=== PATIENT | female | born 1990 | race Caucasian/White ===

== ENCOUNTER → 2016-09-02 08:21 | Day surgery (SDC) | payer SELFPAY ==
[~2016-09-02 08:21] MED LIST: Buffered Lidocaine 1% SYR 3ML* 3 ML/SYR SYRINGE ONE; Bupivacaine 0.25% SDV* 30 ML ONE; Famotidine IV* 10 MG/ML 2 ML (20 mg) ONE; HYDROcodone/ACETAMIN 5-325 MG* 1 TAB ONE; Ketorolac INJ* 30 MG/ML 1 ML VIAL ONE; Lidocaine 2% PF * 5 ML VIAL ONE; Midazolam* 1 MG/ML 2 ML VIAL (2 MG) ONE; Ondansetron INJ* 2 MG/ML VIAL ONE; PROCHLORPERAZINE INJ 5 MG/ML 2 ML VIAL IV PRN; Propofol* 10 MG/ML 20 ML BTL IV PUSH ONE; fentaNYL* 50 MCG/ML 2 ML VIAL (100 MCG VIAL) IV PRN; fentaNYL* 50 MCG/ML 2 ML VIAL (100 MCG VIAL) ONE; oxyCODONE TAB* 5 MG TAB PO PRN
[2016-09-02 12:31] VITALS: BP 129/87
--- NOTE | 2016-09-07 00:28 | OP ---
DATE OF OPERATION: 09/02/16 - [facility] DATE OF : 89 SURGEON: Piyush Peck MD MULTIPLE RESAW OPERATOR: KATARZYNA Chang ANESTHESIOLOGIST: Dr. Daley. ANESTHESIA: General. PRE-OP DIAGNOSES: 1. Chronic left index finger flexor tenosynovitis, status post 2 debridements and with recurrent drainage from the proximal aspect of the wound over the A1 jose area. 2. Previously ruptured left index finger FDS tendon. 3. Extensive flexor tendon adhesions of residual left index finger FDP tendon with no active flexion at the PIP joint or DIP joint. 4. High-grade partial thickness rupture of the left index finger, FDP tendon. POST-OP DIAGNOSES: 1. Chronic left index finger flexor tenosynovitis, status post 2 debridements and with recurrent drainage from the proximal aspect of the wound over the A1 jose area. 2. Previously ruptured left index finger FDS tendon. 3. Extensive flexor tendon adhesions of residual left index finger FDP tendon with no active flexion at the PIP joint or DIP joint. 4. High-grade partial thickness rupture of the left index finger, FDP tendon. OPERATIVE PROCEDURES: 1. Irrigation and debridement of the skin and subcutaneous tissue, left arm and index finger wounds and chronic infections from chronic flexor tenosynovitis. 2. Irrigation and debridement of left index finger metacarpophalangeal joint utilizing prior arthrotomy and defect in the volar plate. 3. Debridement of ruptured left index finger flexor digitorum superficialis tendon in the palm. 4. Debridement of left index finger flexor digitorum superficialis ruptured tendon in the finger. 5. Debridement of adhesed and nonfunctional left index finger flexor digitorum profundus tendon with the remaining flexor tendon sheath in the palm 6. Debridement of adhesed and nonfunctional left index finger flexor digitorum profundus tendon with the remaining flexor tendon sheath in the finger INDICATIONS: Charles is a 26-year-old female who a month and a half ago, on 07/21, had a cat bite to the left index finger. She ultimately was treated initially with antibiotics and after a day or two later was still infected. She was admitted for IV antibiotics a couple of days after that and discharged. Ultimately, she ended up undergoing her first I and D on 08/07/16 and then subsequently underwent another irrigation and debridement about 2 weeks ago, on 08/20/16. At that time, the FDS tendon was noted to be ruptured. Everything was washed out and wounds were closed very loose and she was sent for followup with me for dedicated hand surgical consultation. I saw her the first time about a week ago and I noted that she had no active flexion of the finger except at the MP joint through the intrinsics. I counseled her that she really needed to get the finger moving even just passively as her options would be very limited if she develops a stiff finger, but at least, if she has passive motion, we can plan for subsequent reconstructive surgery in the future. We had also discussed the possibility of an index finger ray amputation, but she wants to see if any of the infection cleared and restore some motion to the finger. She has done a very nice job working on passive motion. A week later, she followed with my office and she was said that she was having increasing pain in the area over the A1 jose. She noticed that this started after the wounds definitively closed. She reports that the area is getting more swollen and the last day or two, she has actually started to have a little bit of drainage from the proximal aspect of the incision. We talked about risks and benefits and I told her that it is quite possible that what the remaining nonfunctional tendon that she has is devascularized and certainly has a nidus of infection at this point and is preventing her from healing the infection. We talked about risks and benefits and she elected to proceed with surgery. ESTIMATED BLOOD LOSS: 5 mL. COMPLICATIONS: None. FINDINGS: Completely adherent and stuck down FDP tendon under the A2 jose. There was also significant scar tissue at the site of the FDS rupture, which was just at the proximal aspect of the A2 jose. There was a defect in the volar plate on the ulnar aspect over the MP joint as well. Ultimately, sustained a quite a bunch of scar tissue and absolutely adhesed and very fragile and nonviable-appearing FDP tendon remnant. DESCRIPTION OF PROCEDURE: Charles was seen in the preoperative holding area and the correct site and side were marked. The patient then brought back to the operating room. Anesthesia was induced and the arm was prepped and draped in the usual fashion. A formal time-out was performed. I then went ahead and opened up the prior Nathan-type incision over the volar aspect of the left index finger and down to the palm just proximal to the A1 jose. This was then extended proximally and a little bit distally as well to expose the entire flexion tendon sheath. Distally, the tendon looked healthy, perfused and viable. At about the level of the distal aspect of the A3 jose it started to become diseased and rather poor looking. There were complete and massive adhesions of the FDP and ruptured FDS tendon under the A2 jose and absolutely no pull- through of the tendons. The FDS was ruptured just near the area of the A1 jose area. The remainder of the FDP tendon and the area of the A1 jose area looked very poor, stringy, nonviable, and certainly not functional. I went ahead and cleaned up some skin, subcutaneous tissue, and scar tissue and identified the digital nerves proximally in a more healthy tissue. These were then dissected out distally and preserved throughout the entirety of the case. Feeling the nonviability of the tendons and that they were a reason for the persistent infection despite antibiotics, and certainly the fact that they were completely encased in scar tissue and not going to be functional, I went ahead and made the decision to debride all of the FDP and FDS tendons. The debridement was carried back proximally for both the FDP and FDS remnants all the way to the level of the mid palm, where the tendons started to look completely healthy and disease free. They were then incised sharply at this point and allowed to retract up into carpal tunnel. The debridement was then carried out distally into the finger removing the distal FDS stumps, the diseased FDP tendon, A2 jose, A3 jose, and most of the A4 jose as well until I encountered a healthy, viable distal FDP tendon. All the scar tissue and nonviable tissue was removed. Everything was looking now looking healthy. At this point, I took my bulb syringe and put it in through the defect in the volar plate in the metacarpophalangeal joint and then irrigated the metacarpophalangeal joint as I took it through a complete range of motion. With the tendons fully debrided and the wound bed looking very clean, I went ahead and copiously irrigated the wound. The wound was then closed very loosely with eight or nine 4-0 nylon sutures in the corners of the flaps and a couple of them in between the corners of the flaps. The wound was then bandaged with Xeroform, 4x4s, sterile Webril, and an Roland wrap. She was then awoken back up and taken to the recovery room in stable condition. [id number]/[facility] #: [id number] IVON
== END | disposition home or self-care (01) ==
LOC: OREAST 08:21
PROVIDERS: ATTEND Orthopaedic Surgery Hand Surgery
DX: M65.142 Other infective (teno)synovitis, left hand (principal); M66.342 Spontaneous rupture of flexor tendons, left hand; F17.210 Nicotine dependence, cigarettes, uncomplicated; L03.012 Cellulitis of left finger; W55.01XA Bitten by cat, initial encounter
CPT/HCPCS: 87070; 87073; 87205; 88304; J1885; J2250; J2405; J2704; J3010

== ENCOUNTER → 2016-11-18 09:33 | Day surgery (SDC) | payer OTHER ==
[~2016-11-18 09:33] MED LIST changes: -Buffered Lidocaine 1% SYR 3ML* 3 ML/SYR SYRINGE ONE; +Buffered Lidocaine 1% SYRIN* 3 ML/SYR SYRINGE INTRADERM ONE; +Dexamethasone IV* 4 MG/ML 1 ML (4 MG) IV SLOW PU ONE; +Dexamethasone IV* 4 MG/ML 1 ML (4 MG) ONE; +DiMENhydriNATE IV* 50 MG/ML VIAL IV PUSH PRN; +DiMENhydriNATE IV* 50 MG/ML VIAL ONE; +Famotidine IV* 10 MG/ML 2 ML (20 mg) IV ONE; +HYDROmorphone* 1 MG/ML 1 ML SYR IV PRN; +HYDROmorphone* 1 MG/ML 1 ML SYR ONE; -Lidocaine 2% PF * 5 ML VIAL ONE; +Lidocaine 2% PF* 5 ML VIAL ONE; -Midazolam* 1 MG/ML 2 ML VIAL (2 MG) ONE; +Midazolam* 1 MG/ML 5 ML VIAL (5 MG) ONE; +Ondansetron INJ* 2 MG/ML VIAL IV PRN; -PROCHLORPERAZINE INJ 5 MG/ML 2 ML VIAL IV PRN; +Scopolamine 1.5 mg* PATCH ONE; +Scopolamine 1.5 mg* PATCH TRANSDERM PRN; +Scopolomine PATCH Remove* 1 NOTE MISC PATCH OFF ONE; +ceFAZolin 2 GM PREMIX(*) 2 GM/50 ML BAG IVPB ONE; +fentaNYL* 50 MCG/ML 5 ML VIAL (250 MCG VIAL) ONE; -oxyCODONE TAB* 5 MG TAB PO PRN; +oxyCODONE/Acetamin 5/325 MG* TAB PO PRN
[2016-11-18 19:12] VITALS: BP 128/70
--- NOTE | 2016-11-20 21:51 | OP ---
DATE OF OPERATION: 11/18/16 - [facility] DATE OF : [birth year] SURGEON: Piyush Peck MD SOFTWARE ENGINEER WEB SERVICES: KATARZYNA Tony ANESTHESIOLOGIST: Dr. Bryan. ANESTHESIA: General. PRE-OP DIAGNOSIS: Status post flexor tendon and jose debridement, status post spontaneous rupture of the flexor tendons and extensive scarring due to chronic flexor tenosynovitis. POST-OP DIAGNOSIS: Status post flexor tendon and jose debridement, status post spontaneous rupture of the flexor tendons and extensive scarring due to chronic flexor tenosynovitis. OPERATIVE PROCEDURE: 1. Irrigation and debridement of extensive scar tissue along the tract of the flexor tendon sheath. 2. Stage 1 flexor tendon reconstruction with silicone marsha tendon spacer placement. 3. A2 jose reconstruction using ipsilateral palmaris longus tendon autograft. 4. A4 jose reconstruction using split flexor carpi radialis tendon ipsilateral autograft INDICATIONS: Charles about 3 months ago had her flexor tendons debrided due to unfortunate chronic flexor tenosynovitis. She had ruptured tendons spontaneously. She has failed multiple debridements to clear the infection. After the debridement of the tendons and of the flexor tendon sheath, she has not had any more issues whatsoever with the infection, the pain went away immediately. She has worked hard to regain almost completely full passive motion. She has been off antibiotics for quite sometime and has had absolutely no signs of infection. We have talked about risks and benefits including the risk of infection of the spacer marsha, which would necessitate marsha removal and she would have to wait before any surgery to regain all of her motion back again. We had also talked about the extensive scarring in the finger and the possibility of damage to surrounding structures. FINDINGS: As expected extensive scarring. ESTIMATED BLOOD LOSS: 10 mL. COMPLICATIONS: There was a small partial laceration to the ulnar digital nerve to the index finger during excision of the extensive scar tissue. This was at the level around the A1 jose. Again, it was about a 20% partial laceration and was repaired with one 9-0 nylon suture. DESCRIPTION OF PROCEDURE: Charles was seen in the preoperative holding area. The correct site and side of the procedure were identified. We came back to the operating room where anesthesia was induced, and the arm was prepped and draped in the usual fashion. A formal time-out was performed. I began by reopening her prior Toribio-type incision. This was extended a little bit proximally down into the palm to aid in identifying the neurovascular structures. Dense scar tissue was encountered. I did find the digital nerves both radially and ulnarly. The scar tissue was then excised sharply. I did take care to preserve the volar plate of the PIP and MP joints. The distal stump of the FDP tendon was identified and protected. When I got proximal about the level of the A1 jose, I did have a partial laceration of the digital nerve there. This was noted and I waited until the case was otherwise completed to repair the partial laceration. Once I had the tendon sheath completely debride of all the extensive scar tissue, I went ahead and measured the size of my tendon. It looked like it would take a 4 mm spacer marsha. This was opened and brought in. At this point, I went ahead and made a Nathan-type incision just ulnar to the palmaris longus tendon in the level of the distal forearm. Dissection was carried down through the fascia. Skin flaps were sewn back. The fascia was opened in the FDS and the median nerve was retracted radially to expose the FDP tendons. The ulnar neurovascular bundle was retracted ulnarly. At this point, I then took the Sentilla tendon passer and passed it along the tract of the flexor tendon starting distally and then back up into the carpal tunnel and out just superficial to the FDP tendons. I then took my tendon spacer marsha. I had sutured some 4-0 Prolene to the end of it. I grafted the 4-0 Prolene with my tendon spacer and then delivered the tendon spacer down into the index finger. The tendon spacer was then sewed to the distal FDP tendon stump with some 3-0 nylon suture via few a [id number] sutures. It was trimmed to the appropriate length and left free at the distal forearm level. I then turned my attention to the jose reconstruction. Through the wound, at the distal forearm, I identified the palmaris longus. I really stayed distally and then used a tendon stripper to harvest a full length of the palmaris longus tendon. It was freed up with the muscle that came with it using the 15 blade. I then sutured this with some 4-0 Prolene to its distal end. I then use a right angle retractor to pass this between the extensor tendons in the bone and delivered my palmaris longus tendon 3 times around the proximal phalanx. This was then sutured to itself with some 3-0 Ethibond suture. She had a very sharp palmaris longus tendon and so 75% of the tendon was used up doing this. At this point, I went over to the contralateral arm and made a small transverse 1.5 cm incision. I looked forward but could not identify a palmaris longus tendon, so I went ahead and irrigated that wound and closed up the wound. I came back to the operative arm and made a transverse laceration with the distal FCR tendon. 6 to 7 cm proximal to that, I made a second transverse incision and identified the FCR tendon. I made a third transverse incision proximal to that and again I identified the FCR tendon at the musculotendinous junction. The tendon was freed up along the course of its sheath with the tenotomy scissors. I then split the tendon distally with a 15 blade and passed a 26- gauge wire through the split in the tendon. This was sequentially delivered into the 2 proximal wounds to complete the split of the tendon. The tendon was released distally and proximally. I then use this split FCR tendon graft and in similar fashion as I did on the proximal phalanx, I passed it around the distal phalanx 3 times to reconstruct the A4 jose. At this time, I went superficial to the dorsal extensor tendon. The tendon graft was sutured to itself to complete the reconstruction of the A4 jose. At this point, I checked to make sure the tendon spacer glided. It did glide very smoothly. I felt like it was a little long proximally and so I trimmed off another couple of centimeters. I then flexed the finger multiple times and the tendon was gliding absolutely smoothly. It was not kinking whatsoever. I was very satisfied with this. I went ahead and irrigated the wound very copiously. At this point, I took a 9-0 nylon suture and put one simple suture through the epineurium to repair the partial laceration to the digital nerve that I had caused. I then irrigated the wound out again copiously. I then closed the skin in the distal forearm and all the forearm wounds with 4-0 nylon suture. The finger and palm wounds were closed with 5-0 nylon interrupted sutures. The operative wounds were infiltrated with 0.25% Marcaine. The wounds were dressed with Xeroform, 4x4s, sterile Webril, and Roland wrap. The finger was wrapped loosely with a Coban. The tourniquet was deflated. It had been inflated prior to making skin incision. She was then woken up and taken to the recovery room in stable condition. [id number]/[facility] #: [id number] IVON
== END | disposition home or self-care (01) ==
LOC: OREAST 09:33
PROVIDERS: ATTEND Orthopaedic Surgery Hand Surgery
DX: M66.342 Spontaneous rupture of flexor tendons, left hand (principal); M65.142 Other infective (teno)synovitis, left hand; W55.01XS Bitten by cat, sequela; Z72.0 Tobacco use
CPT/HCPCS: A9270-GY; C1713; J0690; J1100; J1170; J1240; J1885; J2250; J2405; J2704; J3010

== ENCOUNTER 2017-05-30 11:02 | Day surgery (SDC) | payer OTHER ==
[~2017-05-30 11:02] MED LIST changes: +Buffered Lidocaine 0.9% SYRIN* 5 ML/SYR SYRINGE INTRADERM ONE; -Buffered Lidocaine 1% SYRIN* 3 ML/SYR SYRINGE INTRADERM ONE; -Bupivacaine 0.25% SDV* 30 ML ONE; -Dexamethasone IV* 4 MG/ML 1 ML (4 MG) ONE; -DiMENhydriNATE IV* 50 MG/ML VIAL IV PUSH PRN; -DiMENhydriNATE IV* 50 MG/ML VIAL ONE; -Famotidine IV* 10 MG/ML 2 ML (20 mg) ONE; -HYDROcodone/ACETAMIN 5-325 MG* 1 TAB ONE; -HYDROmorphone* 1 MG/ML 1 ML SYR IV PRN; -HYDROmorphone* 1 MG/ML 1 ML SYR ONE; -Ketorolac INJ* 30 MG/ML 1 ML VIAL ONE; -Lidocaine 2% PF* 5 ML VIAL ONE; -Midazolam* 1 MG/ML 5 ML VIAL (5 MG) ONE; -Ondansetron INJ* 2 MG/ML VIAL IV PRN; -Ondansetron INJ* 2 MG/ML VIAL ONE; -Propofol* 10 MG/ML 20 ML BTL IV PUSH ONE; -Scopolamine 1.5 mg* PATCH ONE; -Scopolamine 1.5 mg* PATCH TRANSDERM PRN; -Scopolomine PATCH Remove* 1 NOTE MISC PATCH OFF ONE; -ceFAZolin 2 GM PREMIX(*) 2 GM/50 ML BAG IVPB ONE; -fentaNYL* 50 MCG/ML 2 ML VIAL (100 MCG VIAL) IV PRN; -fentaNYL* 50 MCG/ML 2 ML VIAL (100 MCG VIAL) ONE; -fentaNYL* 50 MCG/ML 5 ML VIAL (250 MCG VIAL) ONE; -oxyCODONE/Acetamin 5/325 MG* TAB PO PRN
[2017-05-30] MEDS ORDERED: Famotidine IV* 10 MG/ML 2 ML (20 mg) ONE (11:05)
[2017-05-30] MEDS ORDERED: Dexamethasone IV* 4 MG/ML 1 ML (4 MG) ONE (11:05)
[2017-05-30] MEDS ORDERED: ceFAZolin 2 GM PREMIX (*) 50 ML IVPB ONE (11:07)
[2017-05-30] MEDS ORDERED: Lidocaine 2% PF * 5 ML VIAL ONE (12:04)
[2017-05-30] MEDS ORDERED: Propofol* 10 MG/ML 20 ML BTL IV PUSH ONE (12:04)
[2017-05-30] MEDS ORDERED: Midazolam* 1 MG/ML 2 ML VIAL (2 MG) ONE (12:05)
[2017-05-30] MEDS ORDERED: fentaNYL* 50 MCG/ML 2 ML VIAL (100 MCG VIAL) ONE ×4 (12:05→15:22)
[2017-05-30] MEDS ORDERED: Bupivacaine 0.25% SDV* 30 ML ONE (12:08)
[2017-05-30] MEDS ORDERED: oxyCODONE/Acetamin 5/325 MG* TAB PO PRN (12:46)
[2017-05-30] MEDS ORDERED: HYDROcodone/ACETAMIN 5-325 MG* 1 TAB PO PRN (12:46)
[2017-05-30] MEDS ORDERED: PROCHLORPERAZINE INJ 5 MG/ML 2 ML VIAL IV PRN (12:46)
[2017-05-30] MEDS ORDERED: Ondansetron INJ* 2 MG/ML VIAL ONE (13:38)
[2017-05-30] MEDS ORDERED: oxyCODONE/Acetamin 5/325 MG* TAB ONE (15:22)
[2017-05-30] MEDS: fentaNYL* 50 MCG/ML 2 ML VIAL (100 MCG VIAL) IV PRN ×2 (15:25→15:47)
[2017-05-30 16:03] VITALS: BP 116/69
--- NOTE | 2017-05-31 05:03 | OP ---
DATE OF OPERATION: 05/30/17 - [facility] DATE OF : [birth year] SURGEON: Piyush Peck MD LOCATION MAN: KATARZYNA Wing. An care team assistant was needed for the entirety of the procedure to aid in positioning of the arm and retraction. ANESTHESIOLOGIST: Dr. Mary Pandey. ANESTHESIA: General. PRE-OP DIAGNOSIS: Status post left index finger stage 1 flexor tendon reconstruction in late October after flexor tendon rupture and debridement secondary to chronic pyogenic flexor tenosynovitis. POST-OP DIAGNOSIS: Status post left index finger, stage 1 flexor tendon reconstruction in late October after flexor tendon rupture and debridement secondary to chronic pyogenic flexor tenosynovitis. OPERATIVE PROCEDURE: Left index finger stage 2 flexor tendon reconstruction with autogenous plantaris tendon autograft. INDICATIONS: Charles had the aforementioned tendon ruptures. She had a debridement and then subsequently she had only reconstruction and Rafa marsha placement by me in late October, I believe. She has been loosening up and has been going slow, but she has reached a point where she has plateaued. She is not really having any pain, finger has 90% normal motion, but is not making any gains in therapy. I had talked to her about giving this more time versus proceeding. She is obviously very anxious to proceed. We waited a couple of more months and I think we are finally at a point where we can proceed with stage 2 of surgery. We certainly understand there is a risk of tendon rupture and tendon adhesions necessitating further surgery. ESTIMATED BLOOD LOSS: 5 mL. COMPLICATIONS: None. FINDINGS: As expected. DESCRIPTION OF PROCEDURE: Charles was seen in the preoperative holding area. The correct site and side of the procedure were identified. We came back to the operating room where the arm was prepped and draped in the usual fashion as was the left leg. A time-out was performed. I then exsanguinated the arm with the Esmarch and inflated the tourniquet to 250 mmHg. I reopened her distal incision and full thickness flap was raised off of the tendon sheath area. The coaptation between the Rafa marsha and the distal pin and stump was identified where the green Ethibond sutures were located. This was released and the distal end of the Rafa marsha was brought up into the wound. I then reopened the distal forearm incision, the fascia was opened, the tenotomy scissors were used to release some of the scar tissue around the flexor tendon. The Rafa marsha was encountered and brought up into the proximal wound. I then placed the moist gauze over both of those wounds and turned my attention to the leg where the leg was exsanguinated with the Esmarch and the tourniquet inflated to 300 mmHg. I then made a 3 cm longitudinal incision just off the medial aspect of the Achilles tendon. Dissection was carried down through the subcutaneous tissue to the fascia. This was opened and the plantaris tendon was identified. This was released distally and brought up into the wound where a tendon stripper was passed around it. I then used the tendon stripper to harvest various long healthy-looking plantar tendon. It was a bit thin and small, but otherwise a very nice tendon. This was wrapped in some moist gauze and set aside for later use. I went ahead and irrigated out the leg wounds, 3- 0 Vicryl to close subcutaneous tissue and the skin was closed with 3-0 Monocryl suture and Steri- Strips. It was dressed with 4x4's, sterile Webril, and an Roland bandage. I then turned my attention back to the arm where I went ahead and sewed by tendon wrap to the proximal end of the Rafa marsha with 4-0 Prolene suture. I then atraumatically pulled the marsha out of the distal wound until I delivered the tendon graft into the distal wound. I then brushed up the edge of my tendon graft. I split the distal stump of the FDP longitudinally and then used Williams needles to pass a 3-0 Prolene suture that I had placed with sutures into the plantaris tendon graft end. The Williams needles were brought out transosseously through the sterile Matrix. I then placed a small bit of gauze and a bit of the Prolene suture wrapper that I had shaped with a button and tied off the 3-0 Prolene in a standard pullout suture fashion to oppose the tendon grafts to the distal phalanx. I then took my two split ends of the FDP _ ____ and wrapped them around my tendon graft. This piece was secured with multiple 4-0 Ethibonds [id number]-de-[id number] sutures. Once I had placed secured my distal tendon stump to the distal end of my graft and had my pull-out suture placed, I went ahead and irrigated out that wound and then turned my attention to the proximal wound where the FDP to the middle finger was identified. I used a tendon prince to into the middle finger FDP tendon. I tensioned the weave so that there was a nice cascade with the index finger, just slightly more flexed with the wrist in neutral to slight flexion. When I had it appropriately tensioned, I went ahead and secured the weave with multiple figure -of- eight, 3-0 Ethibond sutures. Once I had the weave fully tensioned and sewn together, I went ahead and took the wrist through multiple rounds of passive range of motion. Everything was moving very nicely, the cascade was very nice. I, therefore, went ahead and irrigated out all the wounds. The skin was closed with 4- 0 nylon suture both distally and proximally. A 0.25% Marcaine was used to perform a digital block to that index finger and also around the forearm wound. Skin was closed with 4-0 nylon. The wound was dressed with Xeroform, 4x4's, sterile Webril, and dorsal blocking splint was placed to the wrist in slight flexion and MP joints in full flexion. Tourniquet was deflated on the arm. Tourniquet in the leg had been deflated after dressings were on the leg. Everything pinked up nicely. Total tourniquet time for the arm was right around 120 minutes. She was then awoken up and taken to recovery room in stable condition. [id number]/[facility] #: [id number] IVON
== END 2017-05-30 16:25 | disposition home or self-care (01) ==
LOC: OREAST 11:02
PROVIDERS: ATTEND Orthopaedic Surgery Hand Surgery
DX: M66.342 Spontaneous rupture of flexor tendons, left hand (principal); W55.01XS Bitten by cat, sequela; F17.210 Nicotine dependence, cigarettes, uncomplicated
CPT/HCPCS: 81025; A9270-GY; J0690; J1100; J2250; J2405; J2704; J3010

== ENCOUNTER 2017-11-14 13:04 | Day surgery (SDC) | payer BC, OTHER ==
[~2017-11-14 13:04] MED LIST changes: -Dexamethasone IV* 4 MG/ML 1 ML (4 MG) IV SLOW PU ONE; -Famotidine IV* 10 MG/ML 2 ML (20 mg) IV ONE
[2017-11-14] MEDS ORDERED: Bupivacaine 0.25% SDV* 30 ML ONE (14:53)
[2017-11-14] MEDS ORDERED: ceFAZolin 2 GM PREMIX (*) 2 GM/50 ML BAG IVPB ONE (15:07)
[2017-11-14] MEDS ORDERED: Lidocaine 2% PF * 5 ML VIAL ONE (15:30)
[2017-11-14] MEDS ORDERED: Propofol* 10 MG/ML 20 ML BTL IV PUSH ONE (15:30)
[2017-11-14] MEDS ORDERED: fentaNYL* 50 MCG/ML 2 ML VIAL (100 MCG VIAL) ONE ×3 (15:30→17:19)
[2017-11-14] MEDS ORDERED: Ondansetron INJ* 2 MG/ML VIAL IV PRN (16:13)
[2017-11-14] MEDS ORDERED: Ketorolac INJ* 30 MG/ML 1 ML VIAL IV PRN (16:13)
[2017-11-14] MEDS ORDERED: Naloxone* 0.4 MG/ML 1 ML VIAL IV PRN (16:13)
[2017-11-14] MEDS ORDERED: Ketorolac INJ* 30 MG/ML 1 ML VIAL ONE (16:42)
[2017-11-14] MEDS: fentaNYL* 50 MCG/ML 2 ML VIAL (100 MCG VIAL) IV PRN ×4 (16:45→17:26)
[2017-11-14] MEDS ORDERED: HYDROcodone/ACETAMIN 5-325 MG* 1 TAB ONE (16:54)
[2017-11-14 17:45] VITALS: BP 136/77
--- NOTE | 2017-11-18 14:02 | OP ---
DATE OF OPERATION: 11/14/17 - [facility] DATE OF : [birth year] SURGEON: Piyush Peck MD SAND WHEELER: KATARZYNA Adair. An assistant news director was needed for the entirety of the procedure to aid in positioning of the arm and retraction. ANESTHESIOLOGIST: Dr. Daley. ANESTHESIA: General. PRE-OP DIAGNOSES: 1. Left carpal tunnel syndrome. 2. Left extensive flexor tendon tenosynovitis. POST-OP DIAGNOSES: 1. Left carpal tunnel syndrome. 2. Left extensive flexor tendon tenosynovitis. OPERATIVE PROCEDURE: 1. Left wrist and distal forearm radical flexor tenosynovectomy. 2. Left carpal tunnel release. Please note that due to the extensive scar tissue and adhesions to the nerve, this required an extensive neurolysis and ultimately a nerve wrap. This, therefore was substantially more involved and difficult than the normal carpal tunnel release. INDICATIONS: Charles is a 27-year-old who has a very complicated history involving multiple surgeries. In short, she had a cat bite that turned into a chronic flexor tenosynovitis. She underwent I and D's and she had tendon rupture. We attempted a stage 2 reconstruction of the flexor tendon which failed. She had been doing reasonably well and learning to live with the finger. She does want the PIP and DIP joints fused, however, she has developed a pretty profound carpal tunnel syndrome and has extensive flexor tenosynovitis in the area of the distal forearm and carpal tunnel related to all of her prior surgeries. I talked to her about excising the flexor tenosynovitis and releasing the carpal tunnel to see if we can get her some relief. She wants to proceed. ESTIMATED BLOOD LOSS: 2 mL. COMPLICATIONS: None. FINDINGS: As expected. DESCRIPTION OF PROCEDURE: Charles was seen in the preoperative holding area. The correct site, side and procedure were identified. We came back to the operating room where the arm was prepped and draped in the usual fashion. A time-out was performed. I began by exsanguinating the arm with the Esmarch and the tourniquet was inflated to 250 mmHg. I then utilized her prior distal forearm incision and extended this down in line with the carpal tunnel. Dissection was carried down through the subcutaneous tissue in palmar fashion and proximally through the scar tissue down through the fascia. Distally, I went ahead and released the transverse carpal ligament just off the radial aspect of the hook of the hamate. This was continued down through the entirety of the ligament and releasing the continuing palmar fascia down through the mid palm. Proximally, I performed a neurolysis of the median nerve all the way up through the distal forearm area. Once the carpal tunnel release was completed, I turned my attention to the abundant flexor tendon tenosynovitis. I began by finding the tendons proximally. I then worked from distal to proximal taking great care not to injure the flexor tendons. It took quite some time, but I was able to ultimately perform a full synovectomy of first the FDS tendons and then the FDP tendons. Interestingly, the area of Pulvertaft where the Pulvertaft weave had been performed during the 2 stage flexor tendon reconstruction, was inspected and it looks like that weave had failed. At any rate, we took our time, but ultimately we were able to get all of the abundant proliferative flexor tendon tenosynovitis excised. The clean healthy flexor tendons remained. At this point, I irrigated out the wound copiously. The tenosynovitis was sent off as a specimen. I was concerned about the nerve getting scarred in and developing a pretty significant median nerve neuritis and so I went ahead and wrapped the median nerve with AxoGen 10 x 40 mm nerve wrap. The 2 edges of the nerve wrap were secured proximally and distally with a couple of 6-0 Prolene sutures. The nerve wrap was not sewed to the nerve either proximally or distally, but was held in place by the adjacent mesoneurium. Once I had the nerve wrap in place and the nerve nicely protected, I again irrigated out the wound. The skin was closed with 4-0 nylon suture. The wound was dressed with Xeroform 4x4's, sterile Webril and a cockup wrist splint was applied. Tourniquet was deflated and the patient was woken up and taken to the recovery room in stable condition. [id number]/[facility] #: [id number] IVON
== END 2017-11-14 17:51 | disposition home or self-care (01) ==
LOC: OR 13:04
PROVIDERS: ATTEND Orthopaedic Surgery Hand Surgery
DX: G56.02 Carpal tunnel syndrome, left upper limb (principal); M65.832 Other synovitis and tenosynovitis, left forearm; F17.210 Nicotine dependence, cigarettes, uncomplicated
CPT/HCPCS: 81025; 88304; C1763; J0690; J1885; J2704; J3010

== ENCOUNTER 2019-02-27 07:58 | Inpatient (IN) | payer BC ==
[2019-02-27] MEDS ORDERED: Penicillin G Potassium IV* 5,000,000 UNITS in NS 0.9% 100 ML* 100 ML IVPB ONE (09:25)
[2019-02-27] MEDS ORDERED: Buffered Lidocaine 1% SYRIN* 1 ML/SYRINGE INTRADERM ONE (09:25)
[2019-02-27] MEDS ORDERED: Lactated Ringers 1000 ML Bag* 1,000 ML IV ONE (09:25)
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
[2019-02-27 09:53] LABS: ABS Basophils 0.1 10^3/ul (0-0.2); ABS Lymphocytes 2.4 10^3/ul (1.0-4.8); ABS Monocytes 0.8 10^3/ul (0-0.8); ABS Neutrophils 9.8 10^3/ul (1.5-7.7); Eosinophil % 0.4 %; Hematocrit 34 % (35-47); Hemoglobin 11.6 g/dL (12.0-16.0); Lymphocyte % 18.4 %; Mean Corpuscular HGB Conc 34 g/dL (31-36); Mean Corpuscular Hemoglobin 33 pg (27-31); Mean Corpuscular Volume 96 fL (80-97); Mean Platelet Volume 8.4 fL (7.4-10.4); Nucleated Red Blood Cells % 0.1; Platelet Count 307 10^3/uL (150-450); Red Blood Count 3.52 10^6 /uL (3.70-4.87); Red Cell Distribution Width 13 % (10-15); White Blood Count 13.2 10^3/uL (3.5-10.8)
[2019-02-27] MEDS ORDERED: Oxytocin in LR* 20 UNITS/1,000 ML BAG IVPB SCH ×2 (10:00→20:00)
[2019-02-27] MEDS ORDERED: Lactated Ringers 1000 ML Bag* 1,000 ML IV SCH ×2 (10:00→20:00)
[2019-02-27 10:33] LABS: Urine Benzodiazepine Screen None Detected (None Detect); Urine Opiates Screen None Detected (None Detect)
[2019-02-27] MEDS: Penicillin G Potassium IV* 2,500,000 UNITS in NS 0.9% 100 ML* 100 ML IVPB SCH ×2 (15:01→19:10)
--- NOTE | 2019-02-27 17:48 | PN ---
Progress Note - Progress Note Date of Service: 02/27/19 SOAP: Subjective: Pt reports increasing pain with ctx and pressure. Pt coping well with hydrotherapy. Objective: FHT: 145 bpm, + accels, - decels, moderate variability, ctx q 2-3 min. Pitocin discontinued. AROM: clear cervix: /-1 Assessment: 29 y.o. , 40w1d EGA, Active labor. GBS positive Plan: 1) Con't therapeutic support 2) Anticipate vaginal delivery
[2019-02-27] MEDS ORDERED: Glycerin ADULT SUPP PR PRN (19:18)
[2019-02-27] MEDS ORDERED: Witch Hazel PAD* JAR TOPICAL PRN (19:18)
[2019-02-27] MEDS ORDERED: Dibucaine 1% 28.35 GM TUBE PR PRN (19:18)
--- NOTE | 2019-02-27 19:18 | PROCNOTE ---
[facility] OB: Delivery Note - Delivery A Date of : 02/27/19 Time of : 19:05 Sex: Male Score 1 Minute: 7 Score 5 Minutes: 9 Gestational Age in Weeks and Days at Delivery: 40 Weeks and 1 Days Delivery Method: Spontaneous Vaginal Labor: Induced Amniotic Fluid: Clear Estimated Blood Loss: 250 Anesthesia/Analgesia: Nitrous-Labor Delivered By: Gertrude Stiles - Nursery Level of Nursery: Regular/Bedside - Perineum Perineal Injury: None/Intact Perineal Repair: None - Events Delivery Events of Note: Pitocin During Labor, Full Course of Antibiotics Delivery Events of Note Comment: nuchal cord x 1 easily reduced, compound hand presentation
[2019-02-27] MEDS: Ibuprofen TAB* 600 MG PO PRN (19:58)
[2019-02-27] MEDS ORDERED: Simethicone TAB* 80 MG TAB.CHEW PO SCH (21:00)
[2019-02-27] MEDS: Docusate CAP* 100 MG PO SCH (22:16)
[2019-02-27] MEDS: Acetaminophen TAB* 325 MG PO PRN (22:16)
[2019-02-28] MEDS: Ibuprofen TAB* 600 MG PO PRN ×4 (02:35→20:29)
[2019-02-28] MEDS: Penicillin G Potassium IV* 2,500,000 UNITS in NS 0.9% 100 ML* 100 ML IVPB SCH (03:23)
[2019-02-28] MEDS: Acetaminophen TAB* 325 MG PO PRN (05:43)
[2019-02-28 06:43] LABS: ABS Basophils 0.1 10^3/ul (0-0.2); ABS Lymphocytes 3.9 10^3/ul (1.0-4.8); ABS Monocytes 1.3 10^3/ul (0-0.8); ABS Neutrophils 12.9 10^3/ul (1.5-7.7); Eosinophil % 0.1 %; Hematocrit 32 % (35-47); Hemoglobin 10.9 g/dL (12.0-16.0); Lymphocyte % 21.6 %; Mean Corpuscular HGB Conc 34 g/dL (31-36); Mean Corpuscular Hemoglobin 32 pg (27-31); Mean Corpuscular Volume 95 fL (80-97); Platelet Count 284 10^3/uL (150-450); Red Blood Count 3.38 10^6 /uL (3.70-4.87); Red Cell Distribution Width 13 % (10-15); White Blood Count 18.2 10^3/uL (3.5-10.8)
[2019-02-28] MEDS: Docusate CAP* 100 MG PO SCH ×3 (08:12→20:30)
[2019-02-28] MEDS ORDERED: Ferrous Gluconate TAB* 324 MG TAB PO SCH (09:00)
[2019-03-01] MEDS: Docusate CAP* 100 MG PO SCH ×2 (07:40→13:57)
[2019-03-01] MEDS: Ibuprofen TAB* 600 MG PO PRN (07:41)
[2019-03-01 09:33] VITALS: BP 143/72
[2019-03-01] MEDS: Acetaminophen TAB* 325 MG PO PRN (12:16)
== END 2019-03-01 15:02 | disposition home or self-care (01) | DRG 560 ==
LOC: MCHOBOUT 07:58 → MCHOB 09:05
PROVIDERS: ADMIT Obstetrics & Gynecology; ATTEND Midwife
PROC: 10E0XZZ Delivery of Products of Conception, External Approach (ICD-10-PCS; principal; 2019-02-27)
PROC: 10907ZC Drainage of Amniotic Fluid, Therapeutic from Products of Conception, Via Natural or Artificial Opening (ICD-10-PCS; 2019-02-27)
PROC: 4A1HXCZ Monitoring of Products of Conception, Cardiac Rate, External Approach (ICD-10-PCS; 2019-02-27)
PROC: 3E033VJ Introduction of Other Hormone into Peripheral Vein, Percutaneous Approach (ICD-10-PCS; 2019-02-27)
DX: O48.0 Post-term pregnancy (principal); Z37.0 Single live birth; Z3A.40 40 weeks gestation of pregnancy; O99.824 Streptococcus B carrier state complicating childbirth; O99.334 Smoking (tobacco) complicating childbirth; F17.210 Nicotine dependence, cigarettes, uncomplicated; O69.81X0 Labor and delivery complicated by cord around neck, without compression, not applicable or unspecified; O32.6XX0 Maternal care for compound presentation, not applicable or unspecified; Z67.11 Type A blood, Rh negative; Z87.440 Personal history of urinary (tract) infections
CPT/HCPCS: 36415; 80307; 85025; 86850; 86900; 86901; A9270-GY; J2540

== ENCOUNTER 2020-01-10 19:57 | Inpatient (IN) ==
[2020-01-10 20:35] LABS: ABS Basophils 0.1 10^3/ul (0-0.2); ABS Eosinophils 0.1 10^3/ul (0-0.6); ABS Lymphocytes 3.3 10^3/ul (1.0-4.8); ABS Monocytes 0.7 10^3/ul (0-0.8); Eosinophil % 0.5 %; Hematocrit 39 % (35-47); Hemoglobin 13.2 g/dL (12.0-16.0); Mean Corpuscular HGB Conc 34 g/dL (31-36); Mean Corpuscular Hemoglobin 32 pg (27-31); Mean Corpuscular Volume 94 fL (80-97); Mean Platelet Volume 7.5 fL (7.4-10.4); Nucleated Red Blood Cells % 0.1; Platelet Count 308 10^3/uL (150-450); Red Blood Count 4.15 10^6 /uL (3.70-4.87); Red Cell Distribution Width 13 % (10-15); White Blood Count 11.1 10^3/uL (3.5-10.8)
[2020-01-10 20:52] LABS: ALT 15 U/L (7-52); Albumin 3.7 g/dL (3.2-5.2); Albumin/Globulin Ratio 1.5 (1-3); Alkaline Phosphatase 81 U/L (34-104); BUN/Creatinine Ratio 18.2 (8-20); Blood Urea Nitrogen 14 mg/dL (6-24); CO2 Carbon Dioxide 24 mmol/L (22-32); Calcium 8.9 mg/dL (8.6-10.3); Chloride 111 mmol/L (101-111); EGFR African American 107.2 (>60); EGFR Non-African American 88.6 (>60); Globulin 2.5 g/dL (2-4); Glucose 110 mg/dL (70-100); Sodium 141 mmol/L (135-145); Total Protein 6.2 g/dL (6.4-8.9)
[2020-01-10 20:58] LABS: HCG Pregnancy < 0.60 mIU/mL
[2020-01-10 21:00] LABS: AST 16 U/L (13-39); Acetaminophen < 15 mcg/mL; Alcohol, S < 10 mg/dL (<10); Anion Gap 6 mmol/L (2-11); Potassium 4.2 mmol/L (3.5-5.0); Salicylate < 2.50 mg/dL (<30)
[2020-01-10 21:15] LABS: TSH (Thyroid Stimulating Horm) 0.48 mcIU/mL (0.34-5.60)
[2020-01-10 21:20] LABS: Urine Appearance Cloudy; Urine Bilirubin Negative (Negative); Urine Blood Negative (Negative); Urine Color Yellow; Urine Glucose Negative (Negative); Urine Ketones Negative (Negative); Urine Nitrite Negative (Negative); Urine Protein Negative (Negative); Urine Specific Gravity 1.029 (1.010-1.030); Urine Urobilinogen Negative (Negative)
[2020-01-10 21:28] LABS: Urine Bacteria Absent (Absent); Urine Red Blood Cell 3+(>10/hpf) (Absent); Urine Squamous Epithelial Cell Present (Absent); Urine White Blood Cell Trace(0-5/hpf) (Absent)
[2020-01-10 21:38] LABS: Urine Benzodiazepine Screen None Detected (None Detect); Urine Opiates Screen None Detected (None Detect)
[2020-01-10] MEDS ORDERED: Al Hydrox/Mg Hydrox/Simet LIQ 30 ML UDC PO PRN (22:59)
[2020-01-10] MEDS ORDERED: Nicotine GUM 2MG FRUIT FLAVOR PO PRN (23:00)
[2020-01-11] MEDS ORDERED: Vitamin THERAPEUTIC TAB PO SCH (09:00)
[2020-01-11 09:14] VITALS: BP 146/83
== END 2020-01-11 16:00 | disposition home or self-care (01) | DRG 756 ==
LOC: ED 19:57 → BSU 22:40
PROVIDERS: ADMIT Psychiatry & Neurology Psychiatry; ATTEND Psychiatry & Neurology Psychiatry